=== PATIENT | female | born 1940 | race African-American/Black ===

== ENCOUNTER 2016-06-02 13:25 | Outpatient (CLI) | payer MEDICARE, OTHER ==
[2013-11-30 12:02] VITALS: BP 137/71
== END 2016-06-02 13:26 ==
LOC: POD 13:25
PROVIDERS: ATTEND Podiatrist
DX: B35.1 Tinea unguium (principal); M79.674 Pain in right toe(s); M79.675 Pain in left toe(s)
CPT/HCPCS: 11721; G0463

== ENCOUNTER 2016-08-18 13:12 | Outpatient (CLI) | payer MEDICARE, OTHER ==
[2013-11-30 12:02] VITALS: BP 137/71
== END 2016-08-18 13:13 ==
LOC: POD 13:12
PROVIDERS: ATTEND Podiatrist
DX: B35.1 Tinea unguium (principal); M79.674 Pain in right toe(s); M79.675 Pain in left toe(s)
CPT/HCPCS: 11721; G0463

== ENCOUNTER 2016-09-26 09:21 | Outpatient (CLI) | payer MEDICARE, OTHER ==
[2013-11-30 12:02] VITALS: BP 137/71
[2016-09-26] MEDS ORDERED: ALBUTEROL SULFATE 2.5 MG/3 ML AMPUL.NEB NEB ONE (09:30)
== END 2016-09-26 09:22 ==
LOC: RT 09:21
PROVIDERS: ATTEND Family Medicine
DX: R06.09 Other forms of dyspnea (principal)
CPT/HCPCS: 94060

== ENCOUNTER 2016-10-27 14:50 | Outpatient (CLI) | payer MEDICARE, OTHER ==
[2013-11-30 12:02] VITALS: BP 137/71
== END 2016-10-27 15:00 ==
LOC: POD 14:50
PROVIDERS: ATTEND Podiatrist
DX: B35.1 Tinea unguium (principal); M79.674 Pain in right toe(s); M79.675 Pain in left toe(s)
CPT/HCPCS: 11721; G0463

== ENCOUNTER 2017-01-25 10:49 | Outpatient (CLI) | payer MEDICARE, OTHER ==
[2013-11-30 12:02] VITALS: BP 137/71
[2017-01-25 11:14] LABS: BASOPHILS % 0.5 (0.0-1.5); MEAN CORPUSCULAR HEMOGLOBIN 27.8 pg (28.0-34.0); MEAN CORPUSCULAR VOLUME 88.2 fl (80.0-100.0); MONOCYTES % 4.3 % (0.0-11.0); NEUTROPHILS # 2.9 # k/uL (1.4-7.7)
--- NOTE | 2017-01-25 14:25 | Diagnostic Imaging Report ---
CHAGO WEAVER [facility] [id number] [facility].[address] [id number] Report Submission Date: Jan 25, 2017 12:59:55 PM CDT Patient Study Name: LORRI POOL Date: Jan 25, 2017 11:24:51 AM CDT Modality Type: CR Gender: F Description: CHEST : 36 Institution: [facility] Physician: CHAGO WEAVER Examination: PA and lateral chest. History: Evaluate lung harris. Comparison exam: None provided Findings: PA lateral chest demonstrate a normal cardiac silhouette. Mild tortuosity of the thoracic aorta with vascular calcifications involving the aortic arch. Right hilar calcified granuloma. No peripheral consolidation. No effusion. No blunting of the costophrenic margins. Osseous structures are appropriate for age. Impression: No acute pulmonary process. Electronically signed on Jan 25, 2017 12:59:55 PM CDT by: Juan CELESTIN
[2017-01-25 20:10] LABS: TOTAL PROTEIN 7.4 g/dL (6.0-8.5)
== END 2017-01-25 10:50 ==
LOC: LAB 10:49
PROVIDERS: ATTEND Family Medicine
DX: R07.89 Other chest pain (principal)
CPT/HCPCS: 36415; 71020; 80053; 80061; 84484; 85025

== ENCOUNTER 2017-01-26 13:41 | Outpatient (CLI) | payer MEDICARE, OTHER ==
[2013-11-30 12:02] VITALS: BP 137/71
== END 2017-01-26 13:42 ==
LOC: POD 13:41
PROVIDERS: ATTEND Podiatrist
DX: B35.1 Tinea unguium (principal); M79.674 Pain in right toe(s); M79.675 Pain in left toe(s)
CPT/HCPCS: 11721; G0463

== ENCOUNTER 2017-02-06 11:48 | Outpatient (CLI) | payer MEDICARE, OTHER ==
[2013-11-30 12:02] VITALS: BP 137/71
== END 2017-02-06 11:50 ==
LOC: CARD 11:48
PROVIDERS: ATTEND Internal Medicine Cardiovascular Disease
DX: R07.89 Other chest pain (principal); M79.606 Pain in leg, unspecified; R03.0 Elevated blood-pressure reading, without diagnosis of hypertension; R73.03 Prediabetes; R78.5 Finding of other psychotropic drug in blood
CPT/HCPCS: G0463

== ENCOUNTER 2017-02-08 08:57 | Outpatient (CLI) | payer MEDICARE, OTHER ==
[2013-11-30 12:02] VITALS: BP 137/71
--- NOTE | 2017-02-08 14:00 | Diagnostic Imaging Report ---
MERLIN MONCADA [facility] [id number] [address] Report Submission Date: Feb 08, 2017 9:47:51 AM CDT Patient Study Name: LORRI POOL Date: Feb 08, 2017 9:10:12 AM CDT Modality Type: US\OT Gender: F Description: LIMITED BILAT JOSEPHINE 1-2 LVL : 36 Institution: [facility] Physician: MERLIN MONCADA bilateral ankle brachial index History: Feet numbness Findings: The right arm blood pressure cannot be obtained before the left arm blood pressure was utilized for the ratios for this examination. Ankle brachial index on the right at the level of the posterior tibial artery is 0.57. Lowest ankle brachial index on the left 0.71 also obtained at the posterior tibial artery. This is consistent with a mild degree of peripheral arterial disease. The waveforms are normal. Impression: 1. Mild decrease in the ankle brachial index suggesting mild peripheral vascular disease Electronically signed on Feb 08, 2017 9:47:51 AM CDT by: Khoi CELESTIN
== END 2017-02-08 09:00 ==
LOC: RAD 08:57
PROVIDERS: ATTEND Internal Medicine Cardiovascular Disease
DX: R07.9 Chest pain, unspecified (principal); I25.110 Atherosclerotic heart disease of native coronary artery with unstable angina pectoris
CPT/HCPCS: 93922

== ENCOUNTER 2017-02-27 11:03 | Outpatient (CLI) | payer MEDICARE, OTHER ==
[2013-11-30 12:02] VITALS: BP 137/71
== END 2017-02-27 11:10 ==
LOC: CARD 11:03
PROVIDERS: ATTEND Internal Medicine Cardiovascular Disease
DX: R07.89 Other chest pain (principal); I42.8 Other cardiomyopathies; I73.9 Peripheral vascular disease, unspecified; I10 Essential (primary) hypertension; R73.03 Prediabetes; E78.5 Hyperlipidemia, unspecified
CPT/HCPCS: G0463

== ENCOUNTER 2017-05-18 13:30 | Outpatient (CLI) | payer MEDICARE, OTHER ==
[2013-11-30 12:02] VITALS: BP 137/71
== END 2017-05-18 13:32 ==
LOC: POD 13:30
PROVIDERS: ATTEND Podiatrist
DX: B35.1 Tinea unguium (principal); M79.674 Pain in right toe(s); M79.675 Pain in left toe(s)
CPT/HCPCS: 11721; G0463

== ENCOUNTER 2017-08-17 13:06 | Outpatient (CLI) | payer MEDICARE, OTHER ==
[2013-11-30 12:02] VITALS: BP 137/71
== END 2017-08-17 13:08 ==
LOC: POD 13:06
PROVIDERS: ATTEND Podiatrist
DX: B35.1 Tinea unguium (principal); M79.674 Pain in right toe(s); M79.675 Pain in left toe(s)
CPT/HCPCS: 11721; G0463

== ENCOUNTER 2017-08-21 | Outpatient (CLI) | payer MEDICARE, OTHER | END 2017-08-21 13:05 | CPT/HCPCS: G0463 ==